=== PATIENT | male | born 1980 ===

== ENCOUNTER 2017-09-04 00:05 | Emergency (ER) | payer SELFPAY ==
[2017-09-04 00:09] VITALS: BMI 30.8
[2017-09-04] MEDS ORDERED: Albuterol-Ipratrop 3 mg / 0.5 (3 ml) UD IH STA (00:23)
[2017-09-04 00:26] VITALS: BP 143/77; TEMP 98.6; O2SAT 99
--- NOTE | 2017-09-04 00:30 | ED PDOC ---
Arrival/HPI - General Chief Complaint: Shortness Of Breath Time Seen by Provider: 09/04/17 00:11 Historian: Patient - History of Present Illness Narrative History of Present Illness (Text): 09/04/17 00:29 A 37 year old male, with no significant past medical history presents to the emergency department complaining of 1 day duration shortness of breath, sore throat, and body aches. The patient denies fevers, chills, headache, dizziness, chest pain, dyspnea on exertion, abdominal pain, nausea, vomiting, diarrhea, urinary/bowel changes, or any other complaint. Time/Duration: Other (1 Day) Symptom Onset: Sudden Symptom Course: Unchanged Activities at Onset: Rest, Light Context: Home Past Medical History - Provider Review Nursing Documentation Reviewed: Yes - Cardiac Hx Hypertension: Yes - Pulmonary Hx Respiratory Disorders: No - Neurological Hx Neurological Disorder: No - HEENT Hx HEENT Disorder: No - Renal Hx Renal Disorder: No - Hematological/Oncological Other/Comment: HIV - Integumentary Hx Dermatological Disorder: No - Musculoskeletal/Rheumatological Hx Musculoskeletal Disorders: No - Gastrointestinal Hx Gastrointestinal Disorders: No - Genitourinary/Gynecological Hx Genitourinary Disorders: No - Psychiatric Hx Psychophysiologic Disorder: No Hx Substance Use: Yes Family/Social History - Physician Review Nursing Documentation Reviewed: Yes Family/Social History: No Known Family HX Smoking Status: Never Smoked Hx Alcohol Use: No Hx Substance Use: Yes Substance used: marijuana Allergies/Home Meds Allergies/Adverse Reactions: Allergies No Known Allergies Allergy (Unverified 01/23/14 06:50) Home Medications: Home Meds Medication Instructions Recorded Confirmed No Known Home Med [No Known Home 01/23/14 01/23/14 Med] Review of Systems - Physician Review All systems were reviewed & negative as marked: Yes - Review of Systems Constitutional: absent: Fevers ENT: Sore Throat Respiratory: SOB Cardiovascular: absent: Chest Pain, PARSONS Gastrointestinal: absent: Abdominal Pain, Stool Changes, Diarrhea, Nausea, Vomiting Genitourinary Male: absent: Urinary Output Changes Musculoskeletal: Myalgias Neurological: absent: Headache, Dizziness Physical Exam Vital Signs Reviewed: Yes Vital Signs Temp Pulse Resp BP Pulse Ox 09/04/17 02:38 18 99 09/04/17 02:37 80 18 99 09/04/17 00:26 98.6 F 78 19 143/77 99 09/04/17 00:15 19 98 Temperature: Afebrile Blood Pressure: Normal Pulse: Regular Respiratory Rate: Normal Appearance: Positive for: Well-Appearing, Non-Toxic, Comfortable Pain Distress: None Mental Status: Positive for: Alert and Oriented X 3 - Systems Exam Head: Present: Atraumatic, Normocephalic Pupils: Present: PERRL Extroacular Muscles: Present: EOMI Conjunctiva: Present: Normal Mouth: Present: Moist Mucous Membranes Pharnyx: Present: ERYTHEMA Neck: Present: Normal Range of Motion Respiratory/Chest: Present: Clear to Auscultation, Good Air Exchange. No: Respiratory Distress, Accessory Muscle Use Cardiovascular: Present: Regular Rate and Rhythm, Normal S1, S2. No: Murmurs Abdomen: Present: Normal Bowel Sounds. No: Tenderness, Distention, Peritoneal Signs Back: Present: Normal Inspection Upper Extremity: Present: Normal Inspection. No: Cyanosis, Edema Lower Extremity: Present: Normal Inspection. No: Edema Neurological: Present: GCS=15, CN II-XII Intact, Speech Normal Skin: Present: Warm, Dry, Normal Color. No: Rashes Psychiatric: Present: Alert, Oriented x 3, Normal Insight, Normal Concentration Medical Decision Making ED Course and Treatment: 09/04/17 00:33 Impression: A 37 year old male presents to the emergency department complaining of sore throat, body aches, and shortness of breath for 1 day. Plan: -- EKG -- Chest X-ray -- Labs -- Duoneb -- Reassess and disposition Progress Notes: EKG: Ordered, reviewed, and independently interpreted the EKG. Rate : 68 BPM Rhythm : NSR - Lab Interpretations Lab Results: 09/04/17 00:50 09/04/17 00:50 Lab Results 09/04/17 00:50: Sodium 142, Potassium 3.8, Chloride 106, Carbon Dioxide 25, Anion Gap 14, BUN 13, Creatinine 1.0, Est GFR ( Amer) > 60, Est GFR (Non- Af Amer) > 60, Random Glucose 126 H, Calcium 9.3, Total Bilirubin 0.2, AST 26, ALT 36, Alkaline Phosphatase 80, Total Protein 6.8, Albumin 3.8, Globulin 3.0, Albumin/Globulin Ratio 1.2 09/04/17 00:50: Influenza Typ A,B (EIA) Negative for flu a/b 09/04/17 00:50: WBC 7.7, RBC 4.55, Hgb 13.1 L, Hct 39.8 L, MCV 87.5, MCH 28.8, MCHC 32.9, RDW 13.6, Plt Count 220, MPV 10.4, Gran % 66.3, Lymph % (Auto) 22.1, [place] % (Auto) 6.5 H, Eos % (Auto) 4.7, Baso % (Auto) 0.4, Gran # 5.13, Lymph # ( Auto) 1.7, [place] # (Auto) 0.5, Eos # (Auto) 0.4, Baso # (Auto) 0.03 I have reviewed the lab results: Yes - RAD Interpretation Radiology Orders: 09/04/17 00:24 CHEST TWO VIEWS (PA/LAT) [RAD] Stat - EKG Interpretation Interpreted by ED Physician: Yes Type: 12 lead EKG - Medication Orders Current Medication Orders: Discontinued Medications Albuterol/Ipratropium (Duoneb 3 Mg/0.5 Mg (3 Ml) Ud) 3 ml IH STAT STA Stop: 09/04/17 00:24 Last Admin: 09/04/17 01:20 Dose: 3 ml Levofloxacin (Levaquin) 500 mg PO STAT STA PRN Reason: Protocol Stop: 09/04/17 02:20 Last Admin: 09/04/17 02:37 Dose: 500 mg Oseltamivir Phosphate (Tamiflu Cap) 75 mg PO STAT STA PRN Reason: Protocol Stop: 09/04/17 02:21 Last Admin: 09/04/17 02:33 Dose: 75 mg - Scribe Statement The provider has reviewed the documentation as recorded by the Enedina Ibarra Provider Scribe Attestation: All medical record entries made by the Enedina were at my direction and personally dictated by me. I have reviewed the chart and agree that the record accurately reflects my personal performance of the history, physical exam, medical decision making, and the department course for this patient. I have also personally directed, reviewed, and agree with the discharge instructions and disposition. Disposition/Present on Arrival - Present on Arrival Any Indicators Present on Arrival: No History of DVT/PE: No History of Uncontrolled Diabetes: No Urinary Catheter: No History of Decub. Ulcer: No History Surgical Site Infection Following: None - Disposition Have Diagnosis and Disposition been Completed?: Yes Diagnosis: Bronchitis Disposition: HOME/ ROUTINE Disposition Time: 02:40 Condition: GOOD Discharge Instructions (ExitCare): Acute Bronchitis Prescriptions: levoFLOXacin [Levaquin] 500 mg PO DAILY #10 tab Oseltamivir [Tamiflu] 75 mg PO BID #14 cap Albuterol HFA [Ventolin HFA] 1 puff IH QID #1 puff Forms: [employer] [facility] (Bangladeshi)
[2017-09-04 01:44] LABS: ALB/GLOB RATIO 1.2 (1.1-1.8); ALBUMIN 3.8 g/dL (3.0-4.8); ALT/SGPT 36 U/L (7-56); AST/SGOT 26 U/L (17-59); BLOOD UREA NITROGEN 13 mg/dL (7-21); CALCIUM 9.3 mg/dL (8.4-10.5); GFR AFRICAN-AMERICAN > 60; GFR NON-AFRICAN AMERICAN > 60
[2017-09-04 01:53] LABS: BASO # 0.03 K/mm3 (0.0-2.0); BASO % 0.4 % (0.0-3.0); EOS # 0.4 (0.0-0.7); EOS % 4.7 % (1.5-5.0); GRAN # 5.13 (1.4-6.5); GRAN % 66.3 % (50.0-68.0); HEMOGLOBIN 13.1 g/dL (14.0-18.0); LYMPH # 1.7 (1.2-3.4); LYMPH % 22.1 % (22.0-35.0); MEAN CELL VOLUME 87.5 fl (80.0-105.0); MEAN CORPUSCULAR HEMOGLOBIN 28.8 pg (25.0-35.0); MEAN CORPUSCULAR HGB CONC 32.9 g/dl (31.0-37.0); MEAN PLATELET VOLUME 10.4 fl (7.0-11.0); MONO # 0.5 (0.1-0.6); MONO % 6.5 % (1.0-6.0); RBC 4.55 10^6/uL (3.5-6.1); RED CELL DISTRIBUTION WIDTH 13.6 % (11.5-14.5); WHITE BLOOD COUNT 7.7 10^3/ul (4.5-11.0)
[2017-09-04] MEDS ORDERED: levoFLOXacin 500 MG TAB PO STA (02:19)
[2017-09-04 02:38] VITALS: PULSE 80; RESP 18
--- NOTE | 2017-09-04 09:39 | RAD ---
HISTORY: COMPARISON: No prior. TECHNIQUE: Chest PA and lateral FINDINGS: LINES AND TUBES: None. LUNG AND PLEURA: The lungs are well inflated and clear. HEART AND MEDIASTINUM: The heart is not enlarged. The hilar and mediastinal contours are within normal limits. SKELETAL STRUCTURES: The bony structures are within normal limits for the patient's age. VISUALIZED UPPER ABDOMEN: Normal. OTHER FINDINGS: None. IMPRESSION: No acute findings.
--- NOTE | 2017-09-04 10:36 | CARD ---
APPROVED REPORT EKG Measurement Heart [id number] <Conclusion> Normal sinus rhythm Normal ECG
== END 2017-09-04 02:40 | disposition home or self-care (01) ==
LOC: ED 00:05 → MERGE 00:05 → ED 02:40
DX: J40 Bronchitis, not specified as acute or chronic (principal)

== ENCOUNTER 2017-10-05 05:18 | Emergency (ER) | payer MEDICAID, OTHER ==
[2017-10-05 05:26] VITALS: BMI 29.5
[2017-10-05 05:35] VITALS: RESP 18; TEMP 98.7
--- NOTE | 2017-10-05 06:03 | ED PDOC ---
Arrival/HPI - General Historian: Patient - History of Present Illness Symptom Onset: Sudden Symptom Course: Unchanged Activities at Onset: Rest Context: Home <Nathan Winchester - Last Filed: 10/05/17 06:23> <Pérez Gonzalez - Last Filed: 10/05/17 08:23> - General Chief Complaint: GI Problem Time Seen by Provider: 10/05/17 05:36 - History of Present Illness Narrative History of Present Illness (Text): 10/05/17 06:02 A 37 year old male was brought in by EMS to the emergency department complaining of nausea, vomiting and rectal bleeding. Patient also reports he has abdominal pain in right upper quadrant. Patient denies any fever, chills, headache or any other complaints at this time. (Nathan Winchester) Past Medical History - Provider Review Nursing Documentation Reviewed: Yes - Cardiac Hx Hypertension: Yes - Pulmonary Hx Respiratory Disorders: No - Neurological Hx Neurological Disorder: No - HEENT Hx HEENT Disorder: No - Renal Hx Renal Disorder: No - Hematological/Oncological Hx Blood Disorders: Yes Other/Comment: HIV - Integumentary Hx Dermatological Disorder: No - Musculoskeletal/Rheumatological Hx Musculoskeletal Disorders: No - Gastrointestinal Hx Gastrointestinal Disorders: No - Genitourinary/Gynecological Hx Genitourinary Disorders: No - Psychiatric Hx Psychophysiologic Disorder: Yes Hx Anxiety: Yes Hx Substance Use: Yes - Anesthesia Hx Anesthesia: No - Suicidal Assessment Feels Threatened In Home Enviroment: No <Nathan Winchester - Last Filed: 10/05/17 06:23> Family/Social History - Physician Review Nursing Documentation Reviewed: Yes Family/Social History: No Known Family HX Smoking Status: Former Smoker Hx Alcohol Use: No Hx Substance Use: Yes Substance used: Marijuana <Nathan Winchester - Last Filed: 10/05/17 06:23> Allergies/Home Meds <Nathan Winchester - Last Filed: 10/05/17 06:23> <Pérez Gonzalez - Last Filed: 10/05/17 08:23> Allergies/Adverse Reactions: Allergies No Known Allergies Allergy (Verified 10/05/17 05:57) Review of Systems - Physician Review All systems were reviewed & negative as marked: Yes - Review of Systems Constitutional: absent: Fevers, Other (chills) Gastrointestinal: Abdominal Pain (RLQ), Nausea, Vomiting, Other (rectal bleeding ) Neurological: absent: Headache <RanulfoNathan - Last Filed: 10/05/17 06:23> Physical Exam Vital Signs Reviewed: Yes Temperature: Afebrile Blood Pressure: Hypertensive Pulse: Regular Respiratory Rate: Normal Appearance: Positive for: Well-Appearing, Non-Toxic, Comfortable Pain Distress: None Mental Status: Positive for: Alert and Oriented X 3 - Systems Exam Head: Present: Atraumatic, Normocephalic Pupils: Present: PERRL Extroacular Muscles: Present: EOMI Conjunctiva: Present: Normal Mouth: Present: Moist Mucous Membranes Neck: Present: Normal Range of Motion Respiratory/Chest: Present: Clear to Auscultation, Good Air Exchange. No: Respiratory Distress, Accessory Muscle Use Cardiovascular: Present: Regular Rate and Rhythm, Normal S1, S2. No: Murmurs Abdomen: Present: Tenderness (RLQ), Normal Bowel Sounds. No: Distention, Peritoneal Signs Back: Present: Normal Inspection Upper Extremity: Present: Normal Inspection. No: Cyanosis, Edema Lower Extremity: Present: Normal Inspection. No: Edema Neurological: Present: GCS=15, CN II-XII Intact, Speech Normal Skin: Present: Warm, Dry, Normal Color. No: Rashes Psychiatric: Present: Alert, Oriented x 3, Normal Insight, Normal Concentration <Nathan Winchester - Last Filed: 10/05/17 06:23> Vital Signs Temp Pulse Resp BP Pulse Ox 10/05/17 06:47 61 18 137/91 H 96 10/05/17 05:34 98.7 F 68 18 147/96 H 98 Medical Decision Making <Nathan Winchester - Last Filed: 10/05/17 06:23> - RAD Interpretation [facility] Supervisor: Radiologist <Pérez Gonzalez - Last Filed: 10/05/17 08:23> ED Course and Treatment: 10/05/17 06:00 Impression: A 37 year old male with nausea, vomiting, rectal bleeding and RLQ abdominal pain. Plan: -- EKG -- labs -- IV fluids, Zofran -- Reassess and disposition Prior Visits: Notes and results from previous visits were reviewed. Patient was last seen in the emergency department on 09/04/17 for evaluation of shortness of breath, sore throat and body aches. Progress Notes: 10/05/17 06:23 EKG: Ordered, reviewed, and independently interpreted the EKG. Rate : 58 BPM Rhythm : sinus bradycardia Interpretation : Nonspecific ST/T segment changes (Nathan Winchester) 10/05/17 07:11 Patient was turned over to me by for evaluation of right lower quadrant abdominal pain along with nausea and vomiting which began yesterday. He also complains of rectal bleeding which is chronic in nature. Patient is HIV positive and has been taking his medications. No fever. No diarrhea. He complains of generalized weakness. A CT scan of the abdomen and pelvis has been ordered to rule out appendicitis. (Pérez Gonzalez) - Lab Interpretations Lab Results: 10/05/17 06:04 10/05/17 06:04 Lab Results 10/05/17 06:56: Blood Type Confirm O POSITIVE 10/05/17 06:04: Blood Type O POSITIVE, Antibody Screen Negative, BBK History Checked No verified bt 10/05/17 06:04: Sodium 141, Potassium 4.0, Chloride 106, Carbon Dioxide 25, Anion Gap 14, BUN 16, Creatinine 0.8, Est GFR ( Amer) > 60, Est GFR (Non- Af Amer) > 60, Random Glucose 104, Calcium 9.9, Total Bilirubin 0.3, AST 28, ALT 38, Alkaline Phosphatase 73, Lactate Dehydrogenase 419, Total Creatine Kinase 134, Troponin I < 0.01, Total Protein 7.0, Albumin 3.9, Globulin 3.2, Albumin/Globulin Ratio 1.2, Amylase 63, Lipase 52 10/05/17 06:04: PT 11.3, INR 0.98, APTT 30.6 10/05/17 06:04: WBC 8.3, RBC 4.80, Hgb 13.6 L, Hct 40.8 L, MCV 85.0, MCH 28.3, MCHC 33.3, RDW 13.9, Plt Count 228, MPV 9.7, Gran % 70.2 H, Lymph % (Auto) 20.4 L, [place] % (Auto) 6.1 H, Eos % (Auto) 2.9, Baso % (Auto) 0.4, Gran # 5.85, Lymph # (Auto) 1.7, [place] # (Auto) 0.5, Eos # (Auto) 0.2, Baso # (Auto) 0.03 - RAD Interpretation Radiology Orders: 10/05/17 07:12 ABD & PELVIS W/O PO OR IV CONT [CT] Stat 10/05/17 07:12 ABD & PELVIS W/O PO OR IV CONT [CT] Stat CT scan of the abdomen and pelvis is read by the radiologist shows no acute findings. There is a normal appendix. (Pérez Gonzalez) - Medication Orders Current Medication Orders: Sodium Chloride (Sodium Chloride 0.9%) 1,000 mls @ 80 mls/hr IV .[id number] [facility] Last Admin: 10/05/17 06:08 Dose: 80 mls/hr eMAR Start Stop Document 10/05/17 06:08 (Rec: 10/05/17 06:08 [id number] Intravenous Solution Start Date 10/05/17 Start Time 06:08 Discontinued Medications Ketorolac Tromethamine (Toradol) 15 mg IVP ONCE ONE Stop: 10/05/17 07:18 Last Admin: 10/05/17 08:09 Dose: 15 mg MAR Pain Assessment Document 10/05/17 08:09 [facility] (Rec: 10/05/17 08:12 [facility] [id number]) Pain Reassessment Is this a pain reassessment? Yes Sleep Is patient sleeping during reassessment? No IVP Administration Document 10/05/17 08:09 [facility] (Rec: 10/05/17 08:12 [facility] [id number]) Charges for Administration # of IVP Administrations 1 Ondansetron HCl (Zofran Inj) 4 mg IVP STAT STA Stop: 10/05/17 06:03 Last Admin: 10/05/17 06:06 Dose: 4 mg IVP Administration Document 10/05/17 06:06 (Rec: 10/05/17 06:07 [id number] Charges for Administration # of IVP Administrations 1 - Scribe Statement The provider has reviewed the documentation as recorded by the Scribe <Nathan Winchestre - Last Filed: 10/05/17 06:23> <Pérez Gonzalez - Last Filed: 10/05/17 08:23> - Scribe Statement Alvaro Martinez Provider Scribe Attestation: All medical record entries made by the Scribe were at my direction and personally dictated by me. I have reviewed the chart and agree that the record accurately reflects my personal performance of the history, physical exam, medical decision making, and the department course for this patient. I have also personally directed, reviewed, and agree with the discharge instructions and disposition. (Nathan Winchester) Disposition/Present on Arrival - Present on Arrival History of DVT/PE: No History of Uncontrolled Diabetes: No Urinary Catheter: No History of Decub. Ulcer: No History Surgical Site Infection Following: None <Nathan Winchester - Last Filed: 10/05/17 06:23> - Present on Arrival Any Indicators Present on Arrival: No History of DVT/PE: No History of Uncontrolled Diabetes: No Urinary Catheter: No History of Decub. Ulcer: No - Disposition Have Diagnosis and Disposition been Completed?: Yes Disposition Time: 08:22 Patient Plan: Discharge <Pérez Gonzalez - Last Filed: 10/05/17 08:23> - Disposition Diagnosis: Abdominal pain, Rectal bleeding Disposition: HOME/ ROUTINE Condition: GOOD Discharge Instructions (ExitCare): Acute Abdomen (Belly Pain), Adult (DC), Bloody Stools, Adult (DC) Additional Instructions: Must follow-up with PMD. Follow-up in the ER as needed. Symptomatic treatment. Forms: [facility] (Nauruan), WORK NOTE
[2017-10-05] MEDS ORDERED: Sodium Chloride 0.9% 1,000 ML IV SCH (06:15)
[2017-10-05 06:47] VITALS: O2SAT 96
[2017-10-05 06:54] LABS: BASO # 0.03 K/mm3 (0.0-2.0); BASO % 0.4 % (0.0-3.0); EOS # 0.2 (0.0-0.7); EOS % 2.9 % (1.5-5.0); GRAN # 5.85 (1.4-6.5); GRAN % 70.2 % (50.0-68.0); HEMOGLOBIN 13.6 g/dL (14.0-18.0); LYMPH # 1.7 (1.2-3.4); LYMPH % 20.4 % (22.0-35.0); MEAN CORPUSCULAR HEMOGLOBIN 28.3 pg (25.0-35.0); MEAN CORPUSCULAR HGB CONC 33.3 g/dl (31.0-37.0); MEAN PLATELET VOLUME 9.7 fl (7.0-11.0); MONO # 0.5 (0.1-0.6); MONO % 6.1 % (1.0-6.0); RBC 4.8 10^6/uL (3.5-6.1); RED CELL DISTRIBUTION WIDTH 13.9 % (11.5-14.5); WHITE BLOOD COUNT 8.3 10^3/ul (4.5-11.0)
[2017-10-05 06:59] LABS: ALB/GLOB RATIO 1.2 (1.1-1.8); ALBUMIN 3.9 g/dL (3.0-4.8); ALT/SGPT 38 U/L (7-56); AMYLASE 63 U/L (35-125); AST/SGOT 28 U/L (17-59); BLOOD UREA NITROGEN 16 mg/dL (7-21); CALCIUM 9.9 mg/dL (8.4-10.5); GFR AFRICAN-AMERICAN > 60; GFR NON-AFRICAN AMERICAN > 60; LIPASE 52 U/L (23-300)
[2017-10-05 07:00] LABS: INR 0.98 (0.93-1.08); PARTIAL THROMBOPLASTIN TIME 30.6 Seconds (25.1-36.5); PROTHROMBIN TIME 11.3 SECONDS (9.4-12.5)
[2017-10-05 07:10] LABS: TROPONIN I < 0.01 ng/mL
--- NOTE | 2017-10-05 08:17 | CT ---
EXAM: CT Abdomen and Pelvis Without Intravenous Contrast CLINICAL HISTORY: 37 years old, male; Pain; Abdominal pain; Localized; Right lower quadrant (rlq); Additional info: Rlq pain TECHNIQUE: Axial computed tomography images of the abdomen and pelvis without intravenous contrast. All CT scans at this facility use one or more dose reduction techniques, viz.: automated exposure control; ma/kV adjustment per patient size (including targeted exams where dose is matched to indication; i.e. head); or iterative reconstruction technique. Coronal and sagittal reformatted images were created and reviewed. COMPARISON: No relevant prior studies available. FINDINGS: Lower thorax: No acute findings. ABDOMEN: Liver: Unremarkable. Gallbladder and bile ducts: The gallbladder is contracted. No calcified stones. No ductal dilation. Pancreas: Unremarkable. No ductal dilation. Spleen: Unremarkable. No splenomegaly. Adrenals: Unremarkable. No mass. Kidneys and ureters: Unremarkable. No obstructing stones. No hydronephrosis. Stomach and bowel: Unremarkable. No obstruction. No mucosal thickening. Appendix: A normal appendix is identified. There is no evidence of distention or periappendiceal inflammation to suggest appendicitis. PELVIS: Bladder: Unremarkable. No stones. Reproductive: Unremarkable as visualized. ABDOMEN and PELVIS: Intraperitoneal space: Unremarkable. No free air. No significant fluid collection. Bones/joints: There is mild degenerative retrolisthesis of L5 on S1.There is lumbarization of the S1 vertebral body with formation of a transitional vertebra. No acute fracture. No dislocation. Soft tissues: Unremarkable. Vasculature: Unremarkable. No abdominal aortic aneurysm. Lymph nodes: Unremarkable. No enlarged lymph nodes. IMPRESSION: A normal appendix is identified. There is no evidence of distention or periappendiceal inflammation to suggest appendicitis. No evidence of acute abnormality in the abdomen.
[2017-10-05 09:00] VITALS: BP 136/77; PULSE 62
--- NOTE | 2017-10-05 12:17 | CARD ---
APPROVED REPORT EKG Measurement Heart [id number] RI 184P0 [id number] <Conclusion> Sinus bradycardia Otherwise normal ECG
== END 2017-10-05 08:40 | disposition home or self-care (01) ==
LOC: ED 05:18
DX: K62.5 Hemorrhage of anus and rectum (principal); R10.31 Right lower quadrant pain; I10 Essential (primary) hypertension; Z87.891 Personal history of nicotine dependence; Z21 Asymptomatic human immunodeficiency virus [HIV] infection status
CPT/HCPCS: 74176; 80053; 82150; 82550; 83615; 83690; 84484; 85025; 85610; 85730; 86850; 86900; 93005; 96374; 96375; 99285; J1885; J2405; J7040

== ENCOUNTER 2017-10-29 03:22 | Emergency (ER) | payer MEDICAID ==
[2017-10-29 03:30] VITALS: BMI 26.9
[2017-10-29 03:36] VITALS: RESP 18; TEMP 98.3
--- NOTE | 2017-10-29 03:47 | ED PDOC ---
Arrival/HPI - General Chief Complaint: Chest Pain Time Seen by Provider: 10/29/17 03:24 Historian: Patient - History of Present Illness Narrative History of Present Illness (Text): 10/29/17 03:42 Ministerio Moctezuma is a 37 year old male, whose past medical history includes hypertension and HIV+, who presents to the Emergency department complaining of chest pain. Patient states he woke up tonight with sharp mid-sternal chest pain and notes symptoms are consistent with previous episodes of anxiety. Patient became concerned and came in in for further evaluation. Patient denies any fever , chills, shortness of breath, nausea, vomiting, diarrhea, urinary symptoms, back pain, neck pain, headache, dizziness, or any other complaints. Symptom Onset: Gradual Symptom Course: Unchanged Quality: Other (Sharp) Activities at Onset: Light Context: Home Past Medical History - Provider Review Nursing Documentation Reviewed: Yes - Cardiac Hx Hypertension: Yes - Pulmonary Hx Respiratory Disorders: No - Neurological Hx Neurological Disorder: No - HEENT Hx HEENT Disorder: No - Renal Hx Renal Disorder: No - Hematological/Oncological Hx Blood Disorders: Yes - Integumentary Hx Dermatological Disorder: No - Musculoskeletal/Rheumatological Hx Musculoskeletal Disorders: No - Gastrointestinal Hx Gastrointestinal Disorders: No - Genitourinary/Gynecological Hx Genitourinary Disorders: No - Psychiatric Hx Psychophysiologic Disorder: Yes Hx Anxiety: Yes Hx Panic Disorder: Yes Hx Substance Use: Yes (2 days ago) - Anesthesia Hx Anesthesia: No - Suicidal Assessment Feels Threatened In Home Enviroment: No Family/Social History - Physician Review Nursing Documentation Reviewed: Yes Family/Social History: Unknown Family HX Smoking Status: Former Smoker Hx Alcohol Use: No Hx Substance Use: Yes (2 days ago) Substance used: Marijuana Allergies/Home Meds Allergies/Adverse Reactions: Allergies No Known Allergies Allergy (Verified 10/29/17 03:28) Home Medications: Home Meds Medication Instructions Recorded Confirmed Unobtainable 10/29/17 10/29/17 Review of Systems - Physician Review All systems were reviewed & negative as marked: Yes - Review of Systems Constitutional: Normal. absent: Fevers Eyes: Normal ENT: Normal Respiratory: Normal. absent: SOB, Cough Cardiovascular: Chest Pain Gastrointestinal: Normal. absent: Abdominal Pain, Diarrhea, Nausea, Vomiting Genitourinary Male: Normal. absent: Dysuria, Frequency, Hematuria, Urinary Output Changes Musculoskeletal: Normal. absent: Back Pain, Neck Pain Skin: Normal. absent: Rash Neurological: Normal. absent: Headache, Dizziness Endocrine: Normal Hemo/Lymphatic: Normal Psychiatric: Normal Physical Exam Vital Signs Reviewed: Yes Vital Signs Temp Pulse Resp BP Pulse Ox 10/29/17 05:35 55 L 18 114/68 98 10/29/17 03:30 98.3 F 59 L 18 134/78 97 Temperature: Afebrile Blood Pressure: Normal Pulse: Regular Respiratory Rate: Normal Appearance: Positive for: Well-Appearing, Non-Toxic, Comfortable Pain Distress: None Mental Status: Positive for: Alert and Oriented X 3 - Systems Exam Head: Present: Atraumatic, Normocephalic Pupils: Present: PERRL Extroacular Muscles: Present: EOMI Conjunctiva: Present: Normal Mouth: Present: Moist Mucous Membranes Neck: Present: Normal Range of Motion Respiratory/Chest: Present: Clear to Auscultation, Good Air Exchange. No: Respiratory Distress, Accessory Muscle Use Cardiovascular: Present: Regular Rate and Rhythm, Normal S1, S2. No: Murmurs Abdomen: No: Tenderness, Distention, Peritoneal Signs Back: Present: Normal Inspection Upper Extremity: Present: Normal Inspection. No: Cyanosis, Edema Lower Extremity: Present: Normal Inspection. No: Edema Neurological: Present: GCS=15, CN II-XII Intact, Speech Normal Skin: Present: Warm, Dry, Normal Color. No: Rashes Psychiatric: Present: Alert, Oriented x 3, Normal Insight, Normal Concentration Medical Decision Making ED Course and Treatment: 10/29/17 03:42 Impression: 37 year old male complaining of chest pain today. Plan: -- EKG -- Chest X-ray -- Labs, cardiac enzymes -- UA -- Reassess and disposition Prior Visits: Notes and results from previous visits were reviewed. On 10/05/2017, pt was seen in the Emergency department for nausea, vomiting, and rectal bleeding. Pt was d/c home. Progress Notes: Reviewed EKG, sinus bradycardia at [address]-segment elevations or depressions, no T-wave inversions, normal intervals. 10/29/17 04:43 Chest X-ray reviewed, shows no acute processes. - Lab Interpretations Lab Results: 10/29/17 03:40 10/29/17 03:40 Lab Results 10/29/17 04:00: Urine Color Yellow, Urine Appearance Clear, Urine pH 6.0, Ur Specific [place] >= 1.030, Urine Protein Trace H, Urine Glucose (UA) Negative, Urine Ketones Negative, Urine Blood Negative, Urine Nitrate Negative, Urine Bilirubin Negative, Urine Urobilinogen 0.2, Ur Leukocyte Esterase Negative, Urine RBC 0 - 2, Urine WBC 0 - 2, Ur Epithelial Cells 0 - 2, Urine Other Mucus 10/29/17 03:40: Sodium 142, Potassium 3.7, Chloride 105, Carbon Dioxide 27, Anion Gap 14, BUN 13, Creatinine 0.9, Est GFR ( Amer) > 60, Est GFR (Non- Af Amer) > 60, Random Glucose 106, Calcium 9.1, Magnesium 2.0, Total Bilirubin 0.6, AST 39, ALT 41, Alkaline Phosphatase 63, Lactate Dehydrogenase 522, Total Creatine Kinase 194, Troponin I 0.01, Total Protein 7.0, Albumin 3.9, Globulin 3.1, Albumin/Globulin Ratio 1.3 10/29/17 03:40: WBC 8.1, RBC 4.59, Hgb 13.2 L, Hct 39.6 L, MCV 86.3, MCH 28.8, MCHC 33.3, RDW 14.2, Plt Count 229, MPV 9.6, Gran % 55.5, Lymph % (Auto) 29.5, [place] % (Auto) 9.2 H, Eos % (Auto) 5.2 H, Baso % (Auto) 0.6, Gran # 4.47, Lymph # (Auto) 2.4, [place] # (Auto) 0.7 H, Eos # (Auto) 0.4, Baso # (Auto) 0.05 I have reviewed the lab results: Yes - RAD Interpretation Radiology Orders: 10/29/17 03:32 CHEST PORTABLE [RAD] Stat [employer]acht Hand: ED Physician - EKG Interpretation Interpreted by ED Physician: Yes Type: 12 lead EKG - Scribe Statement The provider has reviewed the documentation as recorded by the Enedina Reza Provider Scribe Attestation: All medical record entries made by the Scribe were at my direction and personally dictated by me. I have reviewed the chart and agree that the record accurately reflects my personal performance of the history, physical exam, medical decision making, and the department course for this patient. I have also personally directed, reviewed, and agree with the discharge instructions and disposition. Disposition/Present on Arrival - Present on Arrival Any Indicators Present on Arrival: No History of DVT/PE: No History of Uncontrolled Diabetes: No Urinary Catheter: No History of Decub. Ulcer: No History Surgical Site Infection Following: None - Disposition Have Diagnosis and Disposition been Completed?: Yes Diagnosis: Anxiety Disposition: HOME/ ROUTINE Disposition Time: 06:30 Condition: GOOD Discharge Instructions (ExitCare): Anxiety, Adult (DC) Referrals[facility] [Outside] - Follow up with primary Shayna Wilks MD [Primary Care Provider] - Follow up with primary Forms: [employer] ([place])
[2017-10-29 04:03] LABS: BASO # 0.05 K/mm3 (0.0-2.0); BASO % 0.6 % (0.0-3.0); EOS # 0.4 (0.0-0.7); EOS % 5.2 % (1.5-5.0); GRAN # 4.47 (1.4-6.5); GRAN % 55.5 % (50.0-68.0); HEMOGLOBIN 13.2 g/dL (14.0-18.0); LYMPH # 2.4 (1.2-3.4); LYMPH % 29.5 % (22.0-35.0); MEAN CELL VOLUME 86.3 fl (80.0-105.0); MEAN CORPUSCULAR HEMOGLOBIN 28.8 pg (25.0-35.0); MEAN CORPUSCULAR HGB CONC 33.3 g/dl (31.0-37.0); MEAN PLATELET VOLUME 9.6 fl (7.0-11.0); MONO # 0.7 (0.1-0.6); MONO % 9.2 % (1.0-6.0); RBC 4.59 10^6/uL (3.5-6.1); RED CELL DISTRIBUTION WIDTH 14.2 % (11.5-14.5); WHITE BLOOD COUNT 8.1 10^3/ul (4.5-11.0)
[2017-10-29 04:14] LABS: TROPONIN I 0.01 ng/mL
[2017-10-29 04:24] LABS: URINE BILIRUBIN NEGATIVE (NEGATIVE); URINE BLOOD NEGATIVE (NEGATIVE); URINE GLUCOSE (UA) NEGATIVE (NEGATIVE); URINE LEUKOCYTE ESTERASE NEGATIVE Leu/uL (NEGATIVE); URINE PROTEIN TRACE mg/dL (<30 mg/dL); URINE UROBILINOGEN 0.2 E.U./dL (<1 E.U./dL)
[2017-10-29 04:32] LABS: URINE APPEARANCE CLEAR (CLEAR); URINE COLOR YELLOW (YELLOW)
[2017-10-29 04:36] LABS: URINE EPITHELIAL CELLS 0 - 2 /hpf (0-5); URINE RBC 0 - 2 /hpf (0-2); URINE WBC 0 - 2 /hpf (0-6)
[2017-10-29 04:47] LABS: ALB/GLOB RATIO 1.3 (1.1-1.8); ALBUMIN 3.9 g/dL (3.0-4.8); ALT/SGPT 41 U/L (7-56); AST/SGOT 39 U/L (17-59); BLOOD UREA NITROGEN 13 mg/dL (7-21); CALCIUM 9.1 mg/dL (8.4-10.5); GFR AFRICAN-AMERICAN > 60; GFR NON-AFRICAN AMERICAN > 60
[2017-10-29 05:36] VITALS: BP 114/68; PULSE 55; O2SAT 98
--- NOTE | 2017-10-29 08:03 | RAD ---
HISTORY: cp COMPARISON: 09/04/2017 FINDINGS: LUNGS: No active pulmonary disease. PLEURA: No significant pleural effusion identified, no pneumothorax apparent. CARDIOVASCULAR: Normal. OSSEOUS STRUCTURES: No significant abnormalities. VISUALIZED UPPER ABDOMEN: Normal. OTHER FINDINGS: None. IMPRESSION: No active disease.
--- NOTE | 2017-10-29 10:10 | CARD ---
APPROVED REPORT EKG Measurement Heart [id number] <Conclusion> Sinus bradycardia Otherwise normal ECG No change
== END 2017-10-29 06:29 | disposition home or self-care (01) ==
LOC: ED 03:22
DX: F41.9 Anxiety disorder, unspecified (principal); I10 Essential (primary) hypertension; Z87.891 Personal history of nicotine dependence